=== PATIENT | male | born 1970 | race Caucasian/White ===

== ENCOUNTER 2024-02-14 04:08 | Day surgery (SDC) | payer OTHER, SELFPAY ==
[2024-02-14 08:41] VITALS: BP 181/98; PULSE 94; RESP 20; TEMP 36.4; O2SAT 99; BMI 30.2
[2024-02-14] MEDS: LACTATED RINGERS 1,000 ML 150 ML IV CONT (08:52)
[2024-02-14 08:54] VITALS: BP 152/85
--- NOTE | 2024-02-14 09:40 | WPDANESEPPF ---
Anes - Initial Pre Proc Eval Procedure: Operation Date: 02/14/24 10:00 Proposed Procedures p Colonoscopy - Richard Salas MD Date/Time: 02/14/24 09:40 Surgeon: Richard Salas MD Pre Op Diagnosis: other fecal abnormalities Patient Data Age: 54 Gender: M Height: 1.8 m Weight: 98.1 kg Last Vital Signs Temp 97.6 F 02/14/24 08:41 Pulse 94 02/14/24 08:41 Resp 20 02/14/24 08:41 BP 152/85 H 02/14/24 08:54 Pulse Ox 99 02/14/24 08:41 O2 Del Method Room Air 02/14/24 08:41 Allergies Allergy/AdvReac Type Severity Reaction Status Date / Time No Known Allergies Allergy Unverified 02/14/24 08:40 Home Medications Medication Instructions Recorded Confirmed Type lisinopril 20 1 tablet PO DAILY #90 tabs 12/17/23 02/14/24 Rx mg-hydrochlorothiazide 25 mg tablet buspirone 5 mg tablet 5 mg PO BID #180 tabs 01/20/24 02/14/24 Rx Patient hx anesthesia problems: none Family hx anesthesia problems: none Results Review: All pre-operative results and documents have been reviewed as part of the pre-operative evaluation. [facility] Past Medical History Medical History Cellulitis of left leg DVT (deep venous thrombosis) Essential (primary) hypertension Thrombophlebitis leg superficial Tobacco use disorder Family History Family History Father Diabetes mellitus Family history of cardiovascular disease Sibling Diabetes mellitus, Onset Age: 55 Social History Social History Social History: Single Smoking packs per day: 1 Smoking cigarettes per day: 20.0 Years smoked: 25 Smoking pack-years: 25.00 Smoking status: Current every day smoker Tobacco type: cigarettes Second hand tobacco smoke exposure: Yes Alcohol intake: current Drinks per week: 12 Alcohol use details: 10-12 beers/week Substance use: never Substance use type: does not use Do You Feel Safe in your Home?: Yes Lack of Transportation: No Lack of Food: Never True Current Housing: I Have Housing Concerned About Future Housing: No Difficulty Paying Gas/Electric Bills: No Difficulty Paying for Meds: No Currently Unemployed: No Education: Decline to Answer Difficulty w/ Childcare or Family Care: No Living arrangements: alone Occupation/Education: occupation Gender identity (if verbalized by the patient): Male Sexual Orientation (if Verbalized by the Patient): Straight or Heterosexual Spiritual care concerns: No Anes - Eval Final PreProcedure Day of Procedure 02/14/24 09:40 Patient weight: obese Heart: regular rate and rhythm Lungs: clear to auscultation Airway: Mallampati scale class II Neurological: alert and oriented Last oral intake: >/= 8 hours ASA classification: II Emergent: no Anesthetic plan: proceed Anesthesia type and monitoring: general GIVS and standard monitoring Results Review: All pre-operative results and documents have been reviewed as part of the pre-operative evaluation. Informed Consent: The patient's anesthetic plan and its attendant risks and benefits were discussed with the patient/family/POA. Questions were solicited and answers provided to the satisfaction of the patient/family/POA.
--- NOTE | 2024-02-14 09:42 | PM.HPGS ---
History of Present Illness History of Present Illness Consent: Risks, benefits, and alternatives have been discussed and questions answered. Patient agrees to proceed with procedure. Chief complaint: other fecal abnormalities Narrative: Justo Celaya is a 54 year old male here for first colonoscopy, + cologuard Review of Systems Review of Systems: All systems reviewed & are unremarkable except as noted in HPI and below PMFSH Past Medical History Medical History (Updated 02/14/24 @ 09:42 by Richard Salas MD) Cellulitis of left leg DVT (deep venous thrombosis) Essential (primary) hypertension Positive colorectal cancer screening using Cologuard test Thrombophlebitis leg superficial Tobacco use disorder Family History Family History Father Diabetes mellitus Family history of cardiovascular disease Sibling Diabetes mellitus, Onset Age: 55 Social History Social History Social History: Single Smoking packs per day: 1 Smoking cigarettes per day: 20.0 Years smoked: 25 Smoking pack-years: 25.00 Smoking status: Current every day smoker Tobacco type: cigarettes Second hand tobacco smoke exposure: Yes Alcohol intake: current Drinks per week: 12 Alcohol use details: 10-12 beers/week Substance use: never Substance use type: does not use Do You Feel Safe in your Home?: Yes Lack of Transportation: No Lack of Food: Never True Current Housing: I Have Housing Concerned About Future Housing: No Difficulty Paying Gas/Electric Bills: No Difficulty Paying for Meds: No Currently Unemployed: No Education: Decline to Answer Difficulty w/ Childcare or Family Care: No Living arrangements: alone Occupation/Education: occupation Gender identity (if verbalized by the patient): Male Sexual Orientation (if Verbalized by the Patient): Straight or Heterosexual Spiritual care concerns: No Meds Home Medications and Allergies Home Medications Medication Instructions Recorded Confirmed Type lisinopril 20 1 tablet PO DAILY #90 tabs 12/17/23 02/14/24 Rx mg-hydrochlorothiazide 25 mg tablet buspirone 5 mg tablet 5 mg PO BID #180 tabs 01/20/24 02/14/24 Rx Allergies Allergy/AdvReac Type Severity Reaction Status Date / Time No Known Allergies Allergy Unverified 02/14/24 08:40 Vital Signs Vital Signs - 24 hr 02/14/24 08:41 02/14/24 08:54 Temperature 97.6 F Pulse Rate 94 Respiratory Rate 20 Blood Pressure 181/98 H 152/85 H Pulse Oximetry 99 Oxygen Delivery Room Air Exam Const: General: comfortable and no acute distress HENMT: Face/Nose/Sinus: Normal nares present Eyes: General: appearance normal, both eyes and all related structures Neck: Neck: no JVD Resp: Auscultation: clear to auscultation bilaterally Cardio: Rate: regular rate Rhythm: regular rhythm GI: Inspection: non-distended GI Palp: Yes Soft to palpation Skin: General skin exam: normal color Neuro: General: gait normal Speech: normal speech Extrem: General: normal to inspection Psych: Mental Status: mental status grossly normal Assessment and Plan Assessment and plan (1) Positive colorectal cancer screening using Cologuard test: Code(s): R19.5 - Other fecal abnormalities Status: Acute Assessment and Plan: colonoscopy
[2024-02-14 09:56] VITALS: BP 120/76; PULSE 85; RESP 13; O2SAT 97
[2024-02-14 10:06] VITALS: BP 123/78; PULSE 77; RESP 19; O2SAT 97
[2024-02-14 10:16] VITALS: BP 135/86; PULSE 65; RESP 17; O2SAT 98
== END 2024-02-14 10:26 | disposition home or self-care (01) ==
PROVIDERS: PCP Family Medicine; Referring Provider Student in an Organized Health Care Education/Training Program; Visit Provider Internal Medicine Gastroenterology
PROC: 0DJD8ZZ Inspection of Lower Intestinal Tract, Via Natural or Artificial Opening Endoscopic (ICD-10-PCS; CPT 45378; principal; 2024-02-14 10:00)
DX: K57.30 Diverticulosis of large intestine without perforation or abscess without bleeding (principal); I10 Essential (primary) hypertension; Z86.718 Personal history of other venous thrombosis and embolism; F17.210 Nicotine dependence, cigarettes, uncomplicated; E66.9 Obesity, unspecified; Z68.30 Body mass index [BMI] 30.0-30.9, adult
CPT/HCPCS: 45378; J2003; J2704; J7120